=== PATIENT | female | born 2000 | race Hispanic/Latino ===

== ENCOUNTER 2021-03-01 23:40 | Emergency (ER) | payer SELFPAY ==
[2021-03-02] MEDS ORDERED: Acetaminophen 500 MG TAB ONE (00:32)
== END 2021-03-02 03:10 | disposition home or self-care (01) ==
LOC: ERS 23:40
DX: S00.03XA Contusion of scalp, initial encounter (principal); G93.0 Cerebral cysts; W19.XXXA Unspecified fall, initial encounter
CPT/HCPCS: 70450

== ENCOUNTER 2023-07-10 23:18 | Emergency (ER) | payer OTHER, SELFPAY | END 2023-07-11 00:04 | disposition home or self-care (01) | LOC: ERS 23:18 | DX: N93.9 Abnormal uterine and vaginal bleeding, unspecified (principal); Z75.8 Other problems related to medical facilities and other health care | CPT/HCPCS: 99283 ==